=== PATIENT | male | born 1970 | race Caucasian/White ===

== ENCOUNTER 2017-12-04 12:42 | Emergency (ER) | payer MEDICAID ==
[~2017-12-04] VITALS: Ht 167.6 cm; Wt 91.0 kg
[2017-12-04 16:40] VITALS: BP 156/95
== END 2017-12-04 16:42 | disposition home or self-care (01) ==
LOC: ER 14:48
DX: H10.022 Other mucopurulent conjunctivitis, left eye (principal); E11.9 Type 2 diabetes mellitus without complications; I10 Essential (primary) hypertension
CPT/HCPCS: 99283